=== PATIENT | female | born 1945 | race African-American/Black ===

== ENCOUNTER 2016-11-29 19:50 | Emergency (ER) | payer OTHER ==
[~2016-11-29] VITALS: Ht 165.1 cm; Wt 104.4 kg
[~2016-11-29 19:50] MED LIST: ALEVE220 MG PO; ALPHAGAN 0100 DROP/5 LEFT EYE; ASPIR 8181 M1 PO; AZOPT 1% O200 DROP/1 LEFT EYE; CLINDAMYCIN HC300 MG PO; HYDROCHLOROTHIA25 MG PO; LIPITOR80 MG PO; PRILOSEC20 MG PO; REFRESH TEARS15 ML RIGHT EYE; SPIRONOLACTONE25 MG PO; TIMOPTIC-0100 DROP/1 LEFT EYE; TOPROL XL25 MG PO; TRAMADOL HCL50 MG PO; XALATAN2.5 ML LEFT EYE
[2016-11-29 21:05] LABS: HEMATOCRIT 37.5 % (36.0-46.0); MCH 25.9 PG (29.0-34.0); MCHC 31.2 G/DL (30.0-36.0); MCV 83.1 FL (83-99); MEAN PLAT.VOLUME 11.2 uM^3 (9.5-12.4); PLATELET COUNT 292 K/uL (156-360); RBC DIS.WIDTH-CV 15.5 % (11.8-14.6); RBC DIS.WIDTH-SD 46.9 % (39-53); RED BLOOD COUNT 4.51 M/uL (3.80-5.20); WHITE BLOOD COUNT 8.7 K/uL (4.1-10.2)
[2016-11-29 21:13] LABS: CHLORIDE 106 mEq/L (99-109); POTASSIUM 4.2 mEq/L (3.7-5.4); SODIUM 142 mEq/L (136-147)
[2016-11-29 21:15] LABS: GLUCOSE 133 mg/dL (70-99)
[2016-11-29 21:17] LABS: ANION GAP 9 MEQ/L (2-14)
[2016-11-29 21:19] LABS: GFR ESTIMATE (CALCULATED) 52 mL/min/
[2016-11-29 21:20] LABS: UREA NITROGEN (BUN) 24 mg/dL (9-23)
[2016-11-29 21:22] LABS: URIC ACID 7.5 mg/dL (3.1-9.2)
[2016-11-29 21:50] LABS: SAMPLE HEMOLYSIS CHECK 0; SAMPLE ICTERIC CHECK 0; SAMPLE LIPEMIA CHECK 1
[2016-11-29] MEDS ORDERED: KEFLEX500 MG PO (22:34)
[2016-11-29] MEDS ORDERED: PERCOCET 5/31 TABLET PO (22:34)
[2016-11-29] MEDS ORDERED: MEDROL DOSEPAK4 MG PO (22:34)
[2016-11-29 22:45] VITALS: BP 165/80
== END 2016-11-29 22:52 | disposition home or self-care (01) ==
LOC: EME 19:50
PROVIDERS: Physician Assistant
DX: M79.672 Pain in left foot (principal); M79.89 Other specified soft tissue disorders; E78.5 Hyperlipidemia, unspecified; I10 Essential (primary) hypertension; K21.9 Gastro-esophageal reflux disease without esophagitis; Z87.891 Personal history of nicotine dependence
CPT/HCPCS: 73630; 80048; 84550; 85027; 86140; 99281; 99284; J7512